=== PATIENT | male | born 2000 | race Caucasian/White ===

== ENCOUNTER 2023-07-22 06:14 | Day surgery (SDC) | payer BC, SELFPAY ==
[2023-07-22] VITALS (11 sets, daily range): BP systolic 103–144; BP diastolic 52–78; BMI 22.3
[2023-07-22] MEDS: TYLENOL 1000 MG PO (09:03)
[2023-07-22] MEDS: NORMOSOL-R 1000 IV (09:03)
[2023-07-22] MEDS: CELEBREX 200 MG PO (09:03)
== END 2023-07-22 12:35 | disposition home or self-care (01) ==
LOC: SDS 06:14
PROVIDERS: ATTENDING PHYSICIAN Specialist
DX: M25.311 Other instability, right shoulder (principal)
CPT/HCPCS: 29807; C1713

== ENCOUNTER 2024-05-18 16:40 | Emergency (ER) | payer BC, SELFPAY ==
[2024-05-18 16:44] VITALS: BP 132/88
[2024-05-18] MEDS: LET TOPICAL ANESTHETIC GEL 3 ML TOPICAL (18:45)
[2024-05-18] MEDS: ADACEL 0.5 ML IM (18:48)
--- NOTE | 2024-05-18 19:26 | ED.GENMED ---
History of Present Illness
General
Chief Complaint: Skin Surface Trauma
Time Seen by Provider: 05/18/24 18:10
History of Present Illness
History of Present Illness:
23-year-old male presents to the emergency department for evaluation of a lip laceration sustained last night after a mechanical fall. Denies any tooth pain or headaches at this time
Past History
Past History
ED Past Medical History: Psychiatric (depression) and Other (ADHD)
Social History
Tobacco: Non-smoker
Alcohol: None
Drug: None
Personal: Single
Living: with family
Employment: Student
Family History
Family History: Other (Mother with MS, MG, Chron's disease, autoimmune hemolytic anemia)
Review of Systems
Review of Systems
Allergies reviewed?: Yes
All Other Systems: ROS reviewed and negative except as documented in HPI and ROS
Phy Exam
Physical Exam
Physical Exam:
GEN: Well appearing, NAD, WDWN
HEENT: Oral mucosa moist, no scleral icterus. 1 cm stellate laceration to the right upper lip, does not cross the vermilion border
Cardiac: Regular rate
Lung: No respiratory distress, no tachypnea
MSK: No gross deformity or injuries
Skin: Good color, no pallor or jaundice, no rashes
Neuro: AO x3, moves all extremities freely
Psych: Calm, cooperative
Course
Orders/Labs/Results
Orders:
Orders
05/18/24 18:34
Lidocaine/Epinephrine/Tetracai [Let Topical Anesthetic Gel] 3 ml TOPICAL NOW STA
Tetanus/Diphth/Acelpertussis [Adacel] 0.5 ml IM .ONCE ONE
05/18/24 19:28
Amoxicillin 875 mg/Clav 125 mg [Augmentin 875 mg/125 mg] 1 tablet PO NOW STA
Vital Signs
Initial and Last Documented VS:
Initial Vital Signs
Temp Pulse Resp BP Pulse Ox
98.3 F 99 20 132/88 99
05/18/24 16:44 05/18/24 16:44 05/18/24 16:44 05/18/24 16:44 05/18/24 16:44
Last Documented Vital Signs
Temp Pulse Resp BP Pulse Ox
98.3 F 99 20 132/88 99
05/18/24 16:44 05/18/24 16:44 05/18/24 16:44 05/18/24 16:44 05/18/24 16:44
Procedures
Laceration Closure
Right upper lip:
Status of Wound: dirty
Size of Wound in cm: 1
Description of Wound Edges: ragged
Preparation: cleaned with saline
Anesthesia: Topical-LET
Wound exploration: explored to base- no FB
Type of Closure: layered closure
Skin Closure Material: other (6-0 gut)
Number of sutures: 2
MDM/Problems Addressed
MDM/Problems Addressed:
Patient was advised that due to the duration of the open wound closure was high risk for infection however given the gaping nature on the patient's lip I feel it is beneficial to at least attempt loose closure for cosmetic purposes. 2 buried
subcuticular 6 oh gut sutures were placed with overlying Steri-Strips. Will place patient on Augmentin for infection prophylaxis
*Critical Care Note
Total Time (30-74mins, 75-104mins- exclusive of procedures): Not Applicable
ED Attending Note
-
Portions of this chart may have been created with voice recognition software.� Occasional wrong word or��sound alike� substitutions may have occurred due to the inherent limitations of voice recognition software.
Discharge Plan
Departure
Patient Disposition: Home (Routine Discharge)
Date of Disposition: 05/18/24
Time of Disposition: 19:28
Patient with high blood pressure during this ER visit?: No
Discharge Problem:
Laceration of lip
Instructions: Laceration Repair With Stitches (DC)
Prescriptions:
New
amoxicillin-pot clavulanate 875-125 mg tablet
1 tab PO BID Qty: 9 0RF
No Action
aripiprazole [Abilify] 5 mg Tablet
5 mg PO DAILY
desvenlafaxine succinate [Pristiq] 50 mg Tablet Extended Release 24 Hr
50 mg PO DAILY
Referrals:
Junior Pitts III, DO [Family Provider] -
Juan Ledezma DO [Active] -
Rahul Vick MD [Active] -
Activity Restrictions/Additional Instructions:
Keep the wound dry for the remainder of the night and you may begin washing as you normally would tomorrow morning. The Steri-Strips will fall off on its own within 1 to 2 days. If you see any small strings of suture protruding through the wound
you may trim them gently, conversely if you notice sutures protruding from the wound greater than 7 days from now you may gently pull on them and they would likely come out. Follow-up as needed with plastic surgery
Interventions
Interventions:
*General Assessment Last Done: 05/18/24 16:44
*Nursing Disposition Last Done: 05/18/24 19:55
ED-Skin Assessment Last Done: 05/18/24 16:55
Discharge Date and Time
Discharge Date/Time: 05/18/24 19:56
Print Language: [id number]
[2024-05-18] MEDS: AUGMENTIN 875 MG/125 MG 1 TABLET PO (19:39)
== END 2024-05-18 19:56 | disposition home or self-care (01) ==
LOC: EMR 16:40
PROVIDERS: EMERGENCY PHYSICIAN Student in an Organized Health Care Education/Training Program; FAMILY PHYSICIAN Student in an Organized Health Care Education/Training Program
DX: S01.511A Laceration without foreign body of lip, initial encounter (principal); W19.XXXA Unspecified fall, initial encounter; Z23 Encounter for immunization; F32.A Depression, unspecified; F90.9 Attention-deficit hyperactivity disorder, unspecified type
CPT/HCPCS: 99283; 12011; 90471; 90715